=== PATIENT | female | born 1950 | race Caucasian/White ===

== ENCOUNTER → 2022-05-17 | Outpatient (CLI) | payer MEDICARE, BC ==
[~2022-05-17] MED LIST: FUROSEMIDE 10 MG/ML 2 ML VIAL IV ONE
--- NOTE | 2022-05-18 09:26 | NM ---
EXAMINATION TYPE: NM lasix renogram DATE OF EXAM: 05/17/2022 COMPARISON: NONE CLINICAL INDICATION:Female, 72 years old with history of N13.39 hydronephrosis; Following administration of 10.1 mCi Tc 99m MAG3 with 20mg Lasix. Immediate images post injection FINDINGS: Left: 43.8 %. (Normal is within 10% of each other) Right: 56.2 %. (Normal is within 10% of each other) Max renal flow left: 8.5 minutes. (Normal is 15 minutes or less). Max renal flow right: 7.4 minutes. (Normal is 15 minutes or less). Satisfactory accumulation of radiotracer within both renal collecting systems. After the administrati on of Lasix, there is prompt excretion from both collecting systems. T 1/2 left: 14.7 minutes. (Normal range 10-15 min). T 1/2 right: 13.2 minutes. (Normal range 10-15 min). IMPRESSION: 1. Slight left decrease renal function. 2. Quantitative analysis as above.
== END | disposition home or self-care (01) ==
LOC: RADNMMAIN 06:45
PROVIDERS: ATTEND Urology
DX: N28.89 Other specified disorders of kidney and ureter (principal)
CPT/HCPCS: 78708; 20611; A9562; G0463; J1030; 99214

== ENCOUNTER → 2022-08-25 | Outpatient (CLI) | payer MEDICARE, BC ==
--- NOTE | 2022-08-25 14:32 | US ---
EXAMINATION TYPE: US kidneys/renal and bladder DATE OF EXAM: 08/25/2022 COMPARISON: NONE CLINICAL HISTORY: N13.39 oth hydronephrosis. known hydro with no symptoms EXAM MEASUREMENTS: Right Kidney: 10.5 x 5.0 x 5.4 cm Left Kidney: 8.0 x 3.6 x 4.1 cm Right Kidney: hydronephrosis - moderate to severe Left Kidney: hydronephrosis = moderate Bladder: wnl Bilateral Jets seen: right IMPRESSION: 1. Moderate to severe hydronephrosis greater on the right
[2022-08-25 18:44] LABS: African American GFR (CKD) 58.5 (60.0-200.0); Anion Gap 9.6 mmol/L (10.00-18.00); BUN/Creat Ratio 8.55 Ratio (12.00-20.00); Blood Urea Nitrogen 9.4 mg/dL (9.0-27.0); Calcium 9.1 mg/dL (8.7-10.3); Carbon Dioxide 21.4 mmol/L (20.0-27.5); Non-African American GFR(CKD) 50.5 (60.0-200.0); Potassium 4.1 mmol/L (3.5-5.5)
== END | disposition home or self-care (01) ==
LOC: RADUSWWP 13:18
PROVIDERS: ATTEND Urology
DX: N13.30 Unspecified hydronephrosis (principal)
CPT/HCPCS: 76770; 80048

== ENCOUNTER 2023-10-17 06:52 | Day surgery (SDC) | payer MEDICARE, BC ==
[2023-09-11 10:43] VITALS: BMI 22.4
--- NOTE | 2023-10-17 04:40 | P.GSHP ---
History of Present Illness H&P Date: 10/17/23 CHIEF COMPLAINT: Colon screen HISTORY OF PRESENT ILLNESS: The patient is a 73-year-old female who presents for colon screen. Lower endoscopy was offered for further evaluation and management. PAST MEDICAL HISTORY: Please see list. PAST SURGICAL HISTORY: Please see list. MEDICATIONS: Please see list. ALLERGIES: Please see list. SOCIAL HISTORY: No illicit drug use FAMILY HISTORY: No reports of Crohn disease or ulcerative colitis. REVIEW OF ORGAN SYSTEMS: CONSTITUTIONAL: No reports of fevers or chills. PHYSICAL EXAM: VITAL SIGNS: Stable GENERAL: Well-developed pleasant in no acute distress. HEENT: No scleral icterus. Extraocular movements grossly intact. Moist buccal mucosa. NECK: Supple without lymphadenopathy. CHEST: Unlabored respirations. Equal bilateral excursions. CARDIOVASCULAR: Regular rate and rhythm. Distal 2+ pulses. ABDOMEN: Soft, nontender, nondistended. MUSCULOSKELETAL: No clubbing, cyanosis, or edema. ASSESSMENT: 1. Colon screen. PLAN: 1. Recommend proceeding with a lower endoscopy Past Medical History Past Medical History: Cancer, Hyperlipidemia, Hypertension, Osteoarthritis (OA) Additional Past Medical History / Comment(s): HX CERVICAL CANCER 23 YEARS AGO, hx of blood in urine. - surgery History of Any Multi-Drug Resistant Organisms: None Reported Past Surgical History: Adenoidectomy, Appendectomy, Bowel Resection, Hysterectomy, Tonsillectomy Additional Past Surgical History / Comment(s): COLONOSCOPY, BOWEL RESECTION X 2, SX TO RT EYE R/T GLASS IN EYE, BILAT CTR, kidney surgery. blood in urine Past Anesthesia/Blood Transfusion Reactions: Postoperative Nausea & Vomiting (PONV) Smoking Status: Current every day smoker - Past Family History Mother Family Medical History: Diabetes Mellitus Medications and Allergies Home Medications Medication Instructions Recorded Confirmed Type Aspirin [Adult Low Dose Aspirin EC] 81 mg PO DAILY 09/11/23 10/16/23 History PARoxetine HCL 30 mg PO DAILY 09/11/23 10/16/23 History Pravastatin Sodium [Pravachol] 40 mg PO DAILY 09/11/23 10/16/23 History lisinopriL [Zestril] 10 mg PO DAILY 09/11/23 10/16/23 History Allergies Allergy/AdvReac Type Severity Reaction Status Date / Time No Known Allergies Allergy Verified 10/16/23 08:20
[~2023-10-17 06:52] MED LIST changes: -FUROSEMIDE 10 MG/ML 2 ML VIAL IV ONE; +LACTATED RINGERS 1,000 ML IV SCH; +LIDOCAINE 1% (10MG/ML) FOR IV START INTRADERMA PRN
[2023-10-17 07:33] VITALS: TEMP 96.3
[2023-10-17] MEDS ORDERED: PROPOFOL 10 MG/ML 20 ML VIAL IV ONE (07:33)
--- NOTE | 2023-10-17 08:18 | P.PCN ---
Date of Procedure: 10/17/23 Description of Procedure: PREOPERATIVE DIAGNOSIS: Family history malignant colon polyps Colonoscopy screening POSTOPERATIVE DIAGNOSIS: Tubular adenoma cecum Tubular adenoma ascending colon And diverticula Sigmoid diverticulosis Internal hemorrhoids, grade 3 OPERATION: Colonoscopy to the ileocecal valve and appendiceal orifice, cecum Colonoscopy with hot snare polypectomy Colonoscopy with cold forceps biopsy SURGEON: Bhavna Greene MD. ANESTHESIA: MAC. INDICATIONS: The patient is an 73-year-old male who presents family history of malignant colon polyps and personal history of colon polyps. Last colonoscopy 5 years. Benefits and risks were described and informed consent was obtained. DESCRIPTION OF PROCEDURE: The patient had undergone Suprep. The patient had been brought into the operating room and laid in the left lateral decubitus position. After adequate intravenous sedation, the rectum was examined with 2% lidocaine jelly. The prostate was unremarkable. External hemorrhoids were encountered. The rectal tone was within normal limits. No lesions were palpated in the rectal vault. An Olympus colonoscope was advanced until the cecum, ileocecal valve and appendiceal orifice were clearly viewed. The prep was good. Pandey diverticulosis U was encountered. Colonic polyps were found and removed. No evidence of focal colitis was found. Retroflexion of the scope demonstrated grade 3 internal hemorrhoids without active bleeding or inflammation. The colon was desufflated. The patient had tolerated the procedure well. Withdrawal time was over 6 minutes. FINDINGS: Aronchick preparation quality scale 2 (1-5) Internal hemorrhoids, grade 3 External hemorrhoids, grade 3. No arteriovenous malformations. Sigmoid diverticulosis with scattered pandiverticulosis Removal of 4 polyps: - Snare polypectomy ascending colon, 8 mm villous adenoma - Cold forceps biopsy at cecum, 4 mm tubulovillous adenoma - Cold forceps biopsy at ascending colon 2, 3 to 4 tubulovillous - Cold forceps biopsy at proximal transverse colon, 4 mm polyp. No focal colitis. RECOMMENDATIONS: Repeat colonoscopy in 3 years, 2025 Plan - Discharge Summary Discharge Rx Participant: No New Discharge Prescriptions: Continue Pravastatin Sodium [Pravachol] 40 mg PO DAILY lisinopriL [Zestril] 10 mg PO DAILY PARoxetine HCL 30 mg PO DAILY Aspirin [Adult Low Dose Aspirin EC] 81 mg PO DAILY Discharge Medication List Aspirin [Adult Low Dose Aspirin EC] 81 mg PO DAILY 09/11/23 [History] PARoxetine HCL 30 mg PO DAILY 09/11/23 [History] Pravastatin Sodium [Pravachol] 40 mg PO DAILY 09/11/23 [History] lisinopriL [Zestril] 10 mg PO DAILY 09/11/23 [History] Follow up Appointment(s)/Referral(s): Bhavna Greene MD [STAFF PHYSICIAN] - 11/06/23 10:30 am Patient Instructions/Handouts: *Surgery [facility] - (Anesthesia) Discharge Instructions Outpatient Surgery, Hemorrhoids (ED), Diverticulosis (DC), Colorectal Polyps (GEN) Activity/Diet/Wound Care/Special Instructions: Repeat colonoscopy 3 years, 2025 Discharge Disposition: HOME SELF-CARE
[2023-10-17 08:20] VITALS: RESP 14
[2023-10-17 08:21] VITALS: BP 129/62; PULSE 61
== END 2023-10-17 09:16 | disposition home or self-care (01) ==
LOC: ORWHC2ENDO 06:52
PROVIDERS: ATTEND Surgery Plastic and Reconstructive Surgery
DX: Z12.11 Encounter for screening for malignant neoplasm of colon (principal); D12.0 Benign neoplasm of cecum; D12.2 Benign neoplasm of ascending colon; K57.30 Diverticulosis of large intestine without perforation or abscess without bleeding; K64.2 Third degree hemorrhoids; K64.8 Other hemorrhoids; I10 Essential (primary) hypertension; M19.90 Unspecified osteoarthritis, unspecified site; E78.5 Hyperlipidemia, unspecified; F41.9 Anxiety disorder, unspecified; F17.210 Nicotine dependence, cigarettes, uncomplicated; Z80.0 Family history of malignant neoplasm of digestive organs; Z79.82 Long term (current) use of aspirin; Z79.899 Other long term (current) drug therapy; Z85.41 Personal history of malignant neoplasm of cervix uteri; Z90.49 Acquired absence of other specified parts of digestive tract; Z86.010 Personal history of colon polyps; Z83.711 Family history of hyperplastic colon polyps
CPT/HCPCS: 88305; 45380; 45385; J2704

== ENCOUNTER → 2024-03-07 | Outpatient (CLI) | payer MEDICARE, BC ==
--- NOTE | 2024-03-07 14:31 | CT ---
EXAMINATION TYPE: CT abdomen pelvis wo con CT DLP: 222 mGycm, Automated exposure control for dose reduction was used. DATE OF EXAM: 03/07/2024 2:15 PM COMPARISON: CT abdomen pelvis most recent from CLINICAL INDICATION:Female, 74 years old with history of N13.39 HYDRONEPHROSIS; hydronephrosis TECHNIQUE: Axial CT abdomen pelvis wo con;Sagittal and coronal reformats were created on a separate workstation. Contrast used: mL of , (none if empty) Oral contrast used: without Oral Contrast (none if empty) FINDINGS: LOWER CHEST: Unremarkable. Small eventration of mesenteric fat is present in both diaphragms ABDOMEN LIVER: Unremarkable GALLBLADDER AND BILE DUCTS: Surgical clips are seen in the gallbladder fossa. PANCREAS: Unremarkable. SPLEEN: Unremarkable. ADRENAL GLANDS: Unremarkable. KIDNEYS AND URETERS: Moderate right hydronephrosis is present. No evidence of renal calcu michelle. The ureters are unremarkable. PELVIS BLADDER: Unremarkable REPRODUCTIVE: Unremarkable. ABDOMEN & PELVIS STOMACH AND BOWEL: No evidence of bowel obstruction. PERITONEUM/RETROPERITONEUM: No evidence of pneumoperitoneum or free fluid. VASCULATURE: No evidence of aortic aneurysm. MUSCULOSKELETAL: No acute osseous abnormalities LYMPH NODES: No gross evidence for lymphadenopathy. SOFT TISSUE/ABDOMINAL WALL: Unremarkable IMPRESSION: 1. Moderate right hydronephrosis is present.
== END | disposition home or self-care (01) ==
LOC: RADCTMAIN 13:50
PROVIDERS: ATTEND Urology
DX: N13.30 Unspecified hydronephrosis (principal)
CPT/HCPCS: 74176

== ENCOUNTER → 2024-03-07 | Outpatient (CLI) | payer MEDICARE, BC ==
[2024-03-07 18:58] LABS: Blood Urea Nitrogen 23.1 mg/dL (9.0-27.0); Calcium 9.8 mg/dL (8.7-10.3); Carbon Dioxide 19.8 mmol/L (21.6-31.8); Chloride 101 mmol/L (96-109); Glucose 91 mg/dL (70-110); Potassium 4.6 mmol/L (3.5-5.5); Sodium 134 mmol/L (135-145)
== END | disposition home or self-care (01) ==
LOC: LABWHC1 14:20
PROVIDERS: ATTEND Urology
DX: N13.39 Other hydronephrosis (principal)
CPT/HCPCS: 36415; 80048

== ENCOUNTER → 2024-03-25 | Outpatient (CLI) | payer MEDICARE, BC ==
[~2024-03-25] MED LIST changes: +FUROSEMIDE 10 MG/ML 2 ML VIAL IV ONE; -LACTATED RINGERS 1,000 ML IV SCH; -LIDOCAINE 1% (10MG/ML) FOR IV START INTRADERMA PRN
--- NOTE | 2024-03-29 17:27 | NM ---
EXAMINATION TYPE: NM lasix renogram DATE OF EXAM: 03/25/2024 COMPARISON: 03/07/2024., 05/17/2022. CLINICAL INDICATION: Female, 74 years old with history of N13.39 Oth hydronephrosis; Following administration of 9.8 mCi Tc 99m MAG3 with 20mg Lasix. Immediate images post injection FINDINGS: Left: 47.6 %. Right: 52.4 %. Max renal flow left: 10.5 minutes. Max renal flow right: 8 minutes. Satisfactory accumulation of radiotracer within both renal collecting systems. After the administrati on of Lasix, there is prompt excretion from both collecting systems. T 1/2 left: 14.6 minutes minutes. T 1/2 right: 19.2 minutes minutes. IMPRESSION: Improved renal function on the left with comparison to prior on 05/17/[address] 03/07/2024 demonstrates urothelial thickening bilaterally correlate with urinalysis
== END | disposition home or self-care (01) ==
LOC: RADNMMAIN 12:36
PROVIDERS: ATTEND Urology
DX: N13.39 Other hydronephrosis (principal)
CPT/HCPCS: 78708; A9562

== ENCOUNTER → 2024-07-09 | Outpatient (CLI) | payer MEDICARE, BC ==
--- NOTE | 2024-07-09 11:37 | US ---
EXAMINATION TYPE: US kidneys/renal and bladder DATE OF EXAM: 07/09/2024 COMPARISON: CT 03/07/24 CLINICAL INDICATION: Female, 74 years old with history of N13.39 Oth hydronephrosis; hydro EXAM MEASUREMENTS: Right Kidney: 10.5x6.1x6.4 cm Left Kidney: 11.2x4.9x4.0 cm Right Kidney: severe hydro Left Kidney: severe hydro Bladder: wnl Bilateral Jets seen: no IMPRESSION: Ongoing severe bilateral hydronephrosis. Appropriate clinical evaluation and management is ayanna reece
== END | disposition home or self-care (01) ==
LOC: RADUSWWP 10:11
PROVIDERS: ATTEND Urology
DX: N13.39 Other hydronephrosis (principal)
CPT/HCPCS: 76770

== ENCOUNTER → 2024-07-09 | Outpatient (CLI) | payer MEDICARE, BC ==
[2024-07-09 15:54] LABS: BUN/Creat Ratio 13.75 Ratio (12.00-20.00); Blood Urea Nitrogen 16.5 mg/dL (9.0-27.0); Calcium 9.8 mg/dL (8.7-10.3); Carbon Dioxide 24.3 mmol/L (21.6-31.8); Chloride 95 mmol/L (96-109); Glucose 96 mg/dL (70-110); Potassium 5.5 mmol/L (3.5-5.5); Sodium 129 mmol/L (135-145)
== END | disposition home or self-care (01) ==
LOC: LABWHC1 10:42
PROVIDERS: ATTEND Urology
DX: N13.39 Other hydronephrosis (principal)
CPT/HCPCS: 36415; 80048

== ENCOUNTER → 2025-03-31 | Outpatient (CLI) | payer MEDICARE, BC ==
--- NOTE | 2025-03-31 15:46 | US ---
EXAMINATION TYPE: US kidneys/renal and bladder DATE OF EXAM: 03/31/2025 COMPARISON: Ultrasound kidneys July 09, 2024 CLINICAL INDICATION: Female, 75 years old with history of N13.39 HYDRONEPHROSIS; known hydronephrosis , no symptoms TECHNIQUE: Grayscale imaging of the bilateral kidneys and urinary bladder: FINDINGS: EXAM MEASUREMENTS: Right Kidney: 8.7 x 6.3 x 4.1 cm Left Kidney: 9.4 x 3.7 x 4.7 cm Right Kidney: moderate hydronephrosis continues Left Kidney: mild hydronephrosis continues Bladder: wnl No nephrolithiasis is seen. No masses are identified. The urinary bladder is anechoic. IMPRESSION: Mild to moderate right greater than left hydronephrosis is present but improved from most recent prior ultrasound. [facility], , 03/31/2025 3:44 PM
[2025-03-31 18:13] LABS: Blood Urea Nitrogen 20.3 mg/dL (9.0-27.0); Calcium 9.6 mg/dL (8.7-10.3); Carbon Dioxide 16.6 mmol/L (21.6-31.8); Chloride 105 mmol/L (96-109); Glucose 98 mg/dL (70-110); Potassium 4.8 mmol/L (3.5-5.5); Sodium 133 mmol/L (135-145)
== END | disposition home or self-care (01) ==
LOC: RADUSWWP 14:33
PROVIDERS: ATTEND Urology
DX: N13.39 Other hydronephrosis (principal)
CPT/HCPCS: 76770; 80048